=== PATIENT | female | born 1985 | race Two or more races ===

== ENCOUNTER 2022-12-02 08:52 | Outpatient (CLI) | payer OTHER | END 2022-12-02 09:48 | disposition home or self-care (01) | LOC: PRENATAL 08:52 | PROVIDERS: ATTEND Obstetrics & Gynecology Maternal & Fetal Medicine | DX: O35.9XX0 Maternal care for (suspected) fetal abnormality and damage, unspecified, not applicable or unspecified (principal); O35.3XX0 Maternal care for (suspected) damage to fetus from viral disease in mother, not applicable or unspecified; O09.519 Supervision of elderly primigravida, unspecified trimester; O44.00 Complete placenta previa NOS or without hemorrhage, unspecified trimester; Z3A.20 20 weeks gestation of pregnancy ==

== ENCOUNTER 2023-01-27 10:09 | Outpatient (CLI) | payer OTHER | END 2023-01-27 11:38 | disposition home or self-care (01) | LOC: PRENATAL 10:09 | PROVIDERS: ATTEND Obstetrics & Gynecology Maternal & Fetal Medicine | DX: O26.849 Uterine size-date discrepancy, unspecified trimester (principal); O09.519 Supervision of elderly primigravida, unspecified trimester; O44.00 Complete placenta previa NOS or without hemorrhage, unspecified trimester; Z3A.28 28 weeks gestation of pregnancy ==

== ENCOUNTER 2023-03-10 08:39 | Outpatient (CLI) | payer OTHER | END 2023-03-10 10:33 | disposition home or self-care (01) | LOC: PRENATAL 08:39 | PROVIDERS: ATTEND Obstetrics & Gynecology Maternal & Fetal Medicine | DX: O26.849 Uterine size-date discrepancy, unspecified trimester (principal); O09.519 Supervision of elderly primigravida, unspecified trimester; O36.8199 Decreased fetal movements, unspecified trimester, other fetus; O44.00 Complete placenta previa NOS or without hemorrhage, unspecified trimester; Z3A.34 34 weeks gestation of pregnancy ==

== ENCOUNTER 2025-01-24 10:54 | Emergency (ER) | payer OTHER ==
[~2025-01-24] VITALS: Ht 172.7 cm; Wt 98.0 kg
[~2025-01-24 10:54] MED LIST: ALLERGY RELIE15.8 ML NASAL; BREO ELLIPTA I1 EACH IH; IBUPROFEN800 MG PO; OXYC1TAB9 PO; PRENATAL TABLE1 EAC1 PO; SINGULAIR10 MG PO
[2025-01-24] MEDS ORDERED: DIPHENHYDRAMINE HCL 50 MG/ML VIAL 1ML IM ONE (11:45)
[2025-01-24] MEDS ORDERED: DIPHENHYDRAMINE HCL 50 MG/ML VIAL 1ML ONE (11:48)
== END 2025-01-24 13:47 | disposition home or self-care (01) ==
LOC: ER 10:55
DX: R60.0 Localized edema (principal)

== ENCOUNTER 2025-02-28 12:35 | Outpatient (CLI) | payer OTHER ==
[~2025-02-28 12:35] MED LIST changes: +ALLEGRA ALLERG180 MG PO; +PROTONIX40 MG PO; +SINGULAIR10 MG; +TOPIRAMATE50 MG
== END 2025-02-28 12:43 | disposition home or self-care (01) ==
LOC: LAB 12:35
PROVIDERS: ATTEND Internal Medicine
DX: N91.2 Amenorrhea, unspecified (principal)

== ENCOUNTER 2025-04-08 07:26 | Day surgery (SDC) | payer OTHER ==
[2025-02-28 08:28] VITALS: BP 119/76
[2025-02-28 08:34] LABS: URINE APPEARANCE Clear; URINE BILIRRUBIN Negative (NEGATIVE); URINE BLOOD Negative; URINE COLOR Yellow; URINE GLUCOSE Negative (NEGATIVE); URINE KETONE Negative (NEGATIVE); URINE LEUKOCYTE Negative; URINE NITRATE Negative; URINE PROTEIN Negative (NEGATIVE); URINE UROBILINOGEN 0.2 E.U./dl
[2025-02-28 08:38] LABS: BASO % 0.2 % (0.1-1.2); EOS # 0.00 (0.04-0.54); EOS % 0.0 % (0.7-7.0); LYMPH # 2.22 (1.18-3.74); LYMPH % 12.9 % (19.3-53.1); MEAN PLATELET VOLUME 8.90 fl (9.4-12.4); MONO # 0.69 (0.24-0.82); MONO % 4.0 % (4.7-12.5); NEUT # 14.14 (1.56-6.13); NEUT % 82.2 % (34.0-71.1); RED CELL DISTRIBUTION WIDTH 14.0 % (11.6-14.4)
[2025-02-28 08:38] LABS: URINE BACTERIA 538.4 uL (0.0-1933); URINE EPITHELIAL CELLS 60.7 uL (0.0-38.8); URINE RBC 37.5 uL (0.0-20.8); URINE WBC 3.7 uL (0.0-23.2)
[2025-02-28 08:49] LABS: URINE CAST 0.00 uL (0.0-1.40)
[2025-02-28 09:04] LABS: INR 1.09
[2025-02-28 09:25] LABS: ALT/SGPT 33.0 U/L (12-78); AST/SGOT 10.0 U/L (15-37); BILIRUBIN TOTAL 0.52 mg/dL (0.3-1.2); BUN CREA RATIO 22.0 (7.0-25.0); CREATININE SERUM 0.74 mg/dL (0.55-1.02); GFR 86.92; GLOBULINA 3.6 G/DL (2.4-3.5); GLUCOSE FASTING 92.0 mg/dL (65-100); OSMOLALITY SERUM 286.0 MOSM/KG (275-295)
[~2025-04-08] VITALS: Ht 172.7 cm; Wt 98.0 kg
[2025-04-08] MEDS ORDERED: METHYLERGONOVINE MALEATE 0.2 MG/ML AMPUL IV ONE (13:15)
[2025-04-08] MEDS ORDERED: POVIDONE-IODINE 118 ML BOTT TOP ONE (13:15)
[2025-04-08] MEDS ORDERED: FF) RHO(D) IMMUNE GLOBULIN (POM) IM ONE (14:45)
== END 2025-04-08 16:45 | disposition home or self-care (01) ==
LOC: CIR.AMB 07:26
PROVIDERS: ATTEND Student in an Organized Health Care Education/Training Program
DX: O02.1 Missed abortion (principal); N84.1 Polyp of cervix uteri; N93.8 Other specified abnormal uterine and vaginal bleeding; R10.2 Pelvic and perineal pain

== ENCOUNTER 2025-04-14 10:44 | Emergency (ER) | payer OTHER ==
[~2025-04-14] VITALS: Ht 172.7 cm; Wt 98.0 kg
[2025-04-14] MEDS ORDERED: ZYRTEC10 M3 PO (13:20)
[2025-04-14] MEDS ORDERED: 0.9 % SODIUM CHLORIDE 1,000 ML IV STA (13:28)
[2025-04-14 15:22] LABS: BASO % 0.5 % (0.1-1.2); EOS # 0.17 (0.04-0.54); EOS % 1.3 % (0.7-7.0); LYMPH # 2.33 (1.18-3.74); LYMPH % 18.0 % (19.3-53.1); MEAN PLATELET VOLUME 9.10 fl (9.4-12.4); MONO # 0.41 (0.24-0.82); MONO % 3.2 % (4.7-12.5); NEUT # 9.95 (1.56-6.13); NEUT % 76.6 % (34.0-71.1); RED CELL DISTRIBUTION WIDTH 13.2 % (11.6-14.4)
[2025-04-14 15:39] LABS: URINE APPEARANCE Turbid; URINE BILIRRUBIN Negative (NEGATIVE); URINE BLOOD Trace; URINE COLOR Dark Yellow; URINE GLUCOSE Negative (NEGATIVE); URINE KETONE Negative (NEGATIVE); URINE LEUKOCYTE Large; URINE NITRATE Positive; URINE PROTEIN Trace (NEGATIVE); URINE UROBILINOGEN 1.0 E.U./dl
[2025-04-14 15:43] LABS: BUN CREA RATIO 20.0 (7.0-25.0); CREATININE SERUM 0.76 mg/dL (0.55-1.02); GFR 83.86; GLUCOSE FASTING 92.0 mg/dL (65-100); OSMOLALITY SERUM 284.0 MOSM/KG (275-295)
[2025-04-14 15:43] LABS: URINE EPITHELIAL CELLS 7.9 uL (0.0-38.8); URINE RBC 18.3 uL (0.0-20.8); URINE WBC 509.9 uL (0.0-23.2)
[2025-04-14 16:01] LABS: URINE BACTERIA > 9821.5 uL (0.0-1933); URINE CAST 0.29 uL (0.0-1.40); URINE CRYSTALS MANY /HPF
[2025-04-14] MEDS ORDERED: FAMOtidine 10 MG/ML (4ML VIAL) IV ONE (16:30)
[2025-04-14] MEDS ORDERED: PIPERACILLIN/TAZOBACTAM SODIUM 3.375 GM VIAL IV ONE ×2 (16:30→16:36)
[2025-04-14] MEDS ORDERED: PEPCID AC20 MG PO (16:30)
[2025-04-14] MEDS ORDERED: BACTRIM DS TAB1 EACH PO (16:30)
[2025-04-14] MEDS ORDERED: FAMOTIDINE/PF 20 MG/2 ML VIAL ONE (16:36)
[2025-04-14] MEDS ORDERED: KETOROLAC TROMETHAMINE 30 MG VIAL IV ONE (18:15)
[2025-04-14] MEDS ORDERED: KETOROLAC TROMETHAMINE 30 MG VIAL ONE (18:29)
== END 2025-04-14 18:42 | disposition home or self-care (01) ==
LOC: ER 10:49
PROVIDERS: Emergency Medicine
DX: O90.89 Other complications of the puerperium, not elsewhere classified (principal); N39.0 Urinary tract infection, site not specified; R10.2 Pelvic and perineal pain; Z87.09 Personal history of other diseases of the respiratory system